=== PATIENT | female | born 1960 | race Two or more races ===

== ENCOUNTER 2016-08-06 18:08 | Emergency (ER) | payer SELFPAY ==
[~2016-08-06] VITALS: Ht 152.4 cm; Wt 65.8 kg
[2016-08-06 19:17] VITALS: BP 148/79
== END 2016-08-06 19:18 | disposition home or self-care (01) ==
LOC: ER 18:09
DX: S20.212A Contusion of left front wall of thorax, initial encounter (principal); M25.512 Pain in left shoulder; E78.00 Pure hypercholesterolemia, unspecified; E11.9 Type 2 diabetes mellitus without complications; V49.9XXA Car occupant (driver) (passenger) injured in unspecified traffic accident, initial encounter; Y93.89 Activity, other specified; Y92.413 State road as the place of occurrence of the external cause; Y99.8 Other external cause status
CPT/HCPCS: 99283; A4606; Z7610

== ENCOUNTER 2022-11-08 13:51 | Emergency (ER) | payer MEDICARE, OTHER ==
[~2022-11-08] VITALS: Ht 157.5 cm; Wt 59.9 kg
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
[2022-11-08] MEDS ORDERED: IBUPROFEN 600 MG TABLET ONE (14:59)
[2022-11-08] MEDS ORDERED: IBUPROFEN 600 MG TABLET PO ONE (15:00)
[2022-11-08] MEDS ORDERED: NAPR-1192 PO (17:07)
--- NOTE | 2022-11-08 17:11 | NUR ---
VOLAR SPLINT LEFT APPLIED, AND INSTRUCTED PT
[2022-11-08 17:14] VITALS: BP 120/75
== END 2022-11-08 17:15 | disposition home or self-care (01) ==
LOC: ER 14:48
DX: S52.612A Displaced fracture of left ulna styloid process, initial encounter for closed fracture (principal); S20.212A Contusion of left front wall of thorax, initial encounter; S80.811A Abrasion, right lower leg, initial encounter; E78.00 Pure hypercholesterolemia, unspecified; E11.9 Type 2 diabetes mellitus without complications; V89.2XXA Person injured in unspecified motor-vehicle accident, traffic, initial encounter; Y93.89 Activity, other specified; Y92.481 Parking lot as the place of occurrence of the external cause; Y99.8 Other external cause status
CPT/HCPCS: 99284; 71045; 29125; 73130; 73564; 73590; 82962; L3763

== ENCOUNTER 2022-12-10 16:22 | Emergency (ER) | payer MEDICARE, OTHER ==
[~2022-12-10] VITALS: Ht 157.5 cm; Wt 59.9 kg
[~2022-12-10 16:22] MED LIST: NAPR-1192 PO
--- NOTE | 2022-12-10 17:10 | NUR ---
RECEIVED PT 62 YRS FEMALE WATING IN WATING ROOM FOR ABDOMINAL PAIN WITH N/V AND diARREA
--- NOTE | 2022-12-10 17:30 | NUR ---
seen by DR. DAWKINS
--- NOTE | 2022-12-10 17:45 | NUR ---
INSERTED ANGO CATHETER G 18 ON RT AC BLOOD DROW AND SENT TO LAB
[2022-12-10] MEDS ORDERED: ONDANSETRON HCL/PF 4 MG/2 ML VIAL ONE (17:49)
[2022-12-10] MEDS ORDERED: FAMOTIDINE/PF INJ 20 MG/2 ML VIAL IV ONE (17:50)
[2022-12-10] MEDS: IV NS 0.9% 1,000 ML BAG IV ONE (18:09)
[2022-12-10] MEDS: FAMOTIDINE/PF INJ 20 MG/2 ML VIAL IV ONE (18:10)
[2022-12-10] MEDS: ONDANSETRON HCL/PF 4 MG/2 ML VIAL IVP ONE (18:10)
[2022-12-10 18:19] LABS: BASOPHILS % (AUTO) 0.4 % (0.0-2.0); HEMATOCRIT 44 % (33-45); HEMOGLOBIN 14.6 g/dL (11.5-14.8); LYMPHOCYTES # (AUTO) 2.3 K/uL (0.8-4.8); LYMPHOCYTES % (AUTO) 27.9 % (20.0-44.0); MEAN CORPUSCULAR HGB CONC 33 g/dl (31.0-36.0); MEAN CORPUSCULAR VOLUME 86 fL (82-100); MONOCYTES # (AUTO) 0.6 K/uL (0.1-1.30); MONOCYTES % (AUTO) 7.5 % (2.0-12.0); NEUTROPHILS # (AUTO) 5.1 K/uL (1.8-8.9); NEUTROPHILS % (AUTO) 62.2 % (43.0-81.0); PLATELET COUNT (AUTO) 317 K/uL (150-450); RED BLOOD CELL COUNT(AUTO) 5.11 MIL/uL (4.0-5.2); WHITE BLOOD COUNT (AUTO) 8.2 K/uL (4.3-11.0)
[2022-12-10 18:36] LABS: CALCIUM, SERUM 8.6 mg/dL (8.5-10.1); CREATININE 0.5 mg/dL (0.6-1.3); POTASSIUM 3.2 mmol/L (3.5-5.1)
--- NOTE | 2022-12-10 18:36 | NUR ---
TO CT SCAN OF ABDOMIN
[2022-12-10 18:42] LABS: ALBUMIN 3.8 g/dL (3.4-5.0); BILIRUBIN,DIRECT 0.1 mg/dL (0.0-0.2); BILIRUBIN,TOTAL 0.5 mg/dL (0.2-1.0); TOTAL PROTEIN, SERUM 7.1 g/dL (6.4-8.2)
[2022-12-10] MEDS: POTASSIUM CHLORIDE 20 MEQ TAB.PRT.SR PO ONE (18:56)
[2022-12-10] MEDS ORDERED: POTASSIUM CHLORIDE 20 MEQ TAB.PRT.SR PO ONE (18:56)
--- NOTE | 2022-12-10 19:20 | NUR ---
HAND OFF CHARLES RN
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
--- NOTE | 2022-12-10 19:30 | NUR ---
URINE COLLECTED, SENT TO LAB
[2022-12-10] MEDS ORDERED: FAMO20TA8 PO ×2 (19:33→19:48)
[2022-12-10] MEDS ORDERED: ONDA4TAB5 PO ×2 (19:33→19:48)
[2022-12-10] MEDS ORDERED: CIPR-262 PO ×2 (19:33→19:48)
[2022-12-10 19:53] LABS: BILIRUBIN,URINE NEGATIVE (NEGATIVE); COLOR,URINE YELLOW (YELLOW); LEUKOCYTE ESTERASE ,URINE NEGATIVE (NEGATIVE); NITRITE, URINE NEGATIVE (NEGATIVE); PH,URINE 5.5 (5.0-8.0); PROTEIN,URINE TRACE mg/dl (NEGATIVE); UGLUCOSE NEGATIVE (NEGATIVE); UROBILINOGEN,URINE 0.2 EU/dL (0.2)
[2022-12-10 20:02] VITALS: BP 121/62
--- NOTE | 2022-12-10 20:02 | NUR ---
Patient discharged to home in stable condition. Written and verbal after care instructions given. Patient verbalizes understanding of instruction. IV removed. Catheter intact and site benign. Pressure and 4x4 applied to site. No bleeding noted.
[2022-12-10 20:39] LABS: BACTERIA,URINE None seen /HPF (None Seen); MUCUS,URINE Few /LPF (None Seen); RBC,URINE 0-2 /HPF (0-2); WBC,URINE 0-2 /HPF (0-3)
== END 2022-12-10 20:03 | disposition home or self-care (01) ==
LOC: ER 16:27
DX: K52.9 Noninfective gastroenteritis and colitis, unspecified (principal); K31.4 Gastric diverticulum; R10.30 Lower abdominal pain, unspecified; R11.0 Nausea; E78.00 Pure hypercholesterolemia, unspecified; E11.9 Type 2 diabetes mellitus without complications; E03.9 Hypothyroidism, unspecified; F17.200 Nicotine dependence, unspecified, uncomplicated; Z60.2 Problems related to living alone
CPT/HCPCS: 99285; 74176; 96374; 96361; 96375; 85025; 80048; 83690; 80076; 81001; 36415; J3490; J2405; J7030